=== PATIENT | female | born 1955 | race Caucasian/White ===

== ENCOUNTER → 2019-02-26 08:42 | Outpatient (CLI) | payer OTHER, SELFPAY ==
--- NOTE | 2019-02-26 | DI.MG.S_ITS ---
BILATERAL DIGITAL SCREENING MAMMOGRAM 3D/2D WITH CAD: 02/26/2019 CLINICAL: Routine screening. Family history of breast cancer. Comparison is made to exams dated: 04/18/2015 mammogram - [facility], 09/20/2013 mammogram, and 06/22/2012 mammogram - [facility]. The tissue of both breasts is heterogeneously dense. This may lower the sensitivity of mammography. Current study was also evaluated with a Computer Aided Detection (CAD) system. No significant masses, calcifications, or other findings are seen in either breast. There has been no significant interval change. IMPRESSION: NEGATIVE There is no mammographic evidence of malignancy. A 1 year screening mammogram is recommended. This exam was interpreted at Station ID: [id number]. NOTE: For mammograms, a report in lay terms will be sent to the patient. Approximately 15% of breast malignancies will not be visualized mammographically. In the management of a palpable breast mass, a negative mammogram must not discourage biopsy of a clinically suspicious lesion. Electronically Signed By: Juan dawn/lakshmi:02/28/2019 08:41:40 letter sent: Normal Exam ACR BI-RADS Category 1: Negative 3341F
== END ==
PROVIDERS: PCP Family Medicine; Visit Provider Family Medicine
DX: Z12.31 Encounter for screening mammogram for malignant neoplasm of breast (principal); Z80.3 Family history of malignant neoplasm of breast
CPT/HCPCS: 77063; 77067

== ENCOUNTER → 2021-02-21 10:27 | Outpatient (CLI) | payer OTHER, SELFPAY ==
--- NOTE | 2021-02-21 10:31 | DI.MG.S_ITS ---
BILATERAL DIGITAL SCREENING MAMMOGRAM 3D/2D WITH CAD: 02/21/2021 CLINICAL: Routine screening. Family history of breast cancer. Comparison is made to exams dated: 02/26/2019 mammogram and 04/18/2015 mammogram - [facility]. The tissue of both breasts is heterogeneously dense. This may lower the sensitivity of mammography. Current study was also evaluated with a Computer Aided Detection (CAD) system. No significant masses, calcifications, or other findings are seen in either breast. There has been no significant interval change. IMPRESSION: NEGATIVE There is no mammographic evidence of malignancy. A 1 year screening mammogram is recommended. This exam was interpreted at Station ID: [id number]. NOTE: For mammograms, a report in lay terms will be sent to the patient. Approximately 15% of breast malignancies will not be visualized mammographically. In the management of a palpable breast mass, a negative mammogram must not discourage biopsy of a clinically suspicious lesion. Electronically Signed By: Jose benites/lakshmi:02/21/2021 11:06:59 letter sent: Normal Exam ACR BI-RADS Category 1: Negative 3341F
== END ==
PROVIDERS: PCP Family Medicine; Referring Provider Family Medicine; Visit Provider Family Medicine
DX: Z12.31 Encounter for screening mammogram for malignant neoplasm of breast (principal)
CPT/HCPCS: 77063; 77067

== ENCOUNTER → 2021-09-26 08:23 | Outpatient (CLI) | payer MEDICARE, OTHER, SELFPAY ==
[2021-09-26 18:34] LABS: Appearance Urine UA CLEAR; Bilirubin Urine UA NEGATIVE (NEGATIVE); Color Urine UA YELLOW; Glucose Urine UA NEGATIVE (Negative); Ketones Urine UA NEGATIVE (NEGATIVE); Leukocyte Esterase Urine UA 1+ (NEGATIVE); Nitrite Urine UA NEGATIVE (Negative); Occult Blood Urine UA 1+ (Negative); Protein Urine UA NEGATIVE (Negative); Specific Gravity Urine UA <=1.005 (1.000-1.035); Urobilinogen Urine UA 0.2 E.U./dL (0.2)
[2021-09-26 19:10] LABS: Bacteria Urine None Seen; Culture Indicated Urine Specimen Cultured; RBC Urine 0-1/HPF (0-5/HPF); Squamous Epithelial Cell Urine None Seen (0-5/HPF); WBC Urine 0-1/HPF (0-5/HPF)
[2021-09-26 19:12] LABS: Add Manual Diff / Slide Review NO; Basophils Absolute Auto 100 /uL (0-100); Basophils Percent Auto 1.1 % (0-2); Eosinophils Absolute Auto 100 /uL (0-450); Eosinophils Percent Auto 1.6 % (2-4); Hematocrit 38.8 % (36-46); Hemoglobin 13.3 g/dL (12.0-16.0); Lymphocytes Absolute Auto 1900 /uL (1100-4500); Lymphocytes Percent Auto 27.2 % (25-40); Mean Corpuscular HGB Conc 34.3 % (30-36); Mean Corpuscular Hemoglobin 30.3 PG (26-34); Mean Corpuscular Volume 88.3 fL (80-100); Monocytes Absolute Auto 400 /uL (0-900); Monocytes Percent Auto 5.4 % (3-14); Neutrophils Absolute Auto 4600 /uL (1500-7000); Neutrophils Percent Auto 64.7 % (50-75); Platelet Count 286 X10^3/uL (150-400); Red Blood Cell Count 4.39 X10^6/uL (4.0-5.2); Red Cell Distribution Width 12.2 % (11.6-14.8); White Blood Cell Count 7.1 X10^3/uL (4.5-11.0)
[2021-09-26 19:15] LABS: Alanine Aminotransferase 15 IU/L (<35); Albumin 4.6 g/dL (3.5-5.0); Albumin Globulin Ratio 1.8 (1.0-2.8); Alkaline Phosphatase 62 U/L (38-126); Aspartate Aminotransferase 26 IU/L (14-36); BUN Creatinine Ratio 18.3 (6-22); Bilirubin Total 0.5 mg/dL (0.2-1.3); Blood Urea Nitrogen 13 mg/dL (7-17); C-Reactive Protein Quant < 0.5 mg/dL (<1.0); Calcium 10.4 mg/dL (8.4-10.2); Carbon Dioxide 32 mmol/L (22-32); Chloride 101 mmol/L (98-107); Estimated Glomerular Filt Rate > 60.0 mL/min (>60); Globulin 2.6 g/dL (1.7-4.1); Glucose 89 mg/dL (80-110); HEMOLYSIS < 15 (0-50); Potassium 4.2 mmol/L (3.4-5.1); Sodium 138 mmol/L (137-145); Total Protein 7.2 g/dL (6.3-8.2)
[2021-09-26 19:40] LABS: TSH w/ Reflex to FT4 4.26 uIU/mL (0.47-4.68)
[2021-09-26 19:45] LABS: Erythrocyte Sedimentation Rate 5 MM/HR (0-20)
[2021-09-27 14:08] LABS: Calcium 10.4 mg/dL (8.7-10.3); Parathyroid Hormone, Intact 40 pg/mL (15-65)
== END ==
PROVIDERS: PCP Family Medicine; Referring Provider Physician Assistant Medical; Visit Provider Physician Assistant Medical
DX: R10.9 Unspecified abdominal pain (principal); R53.83 Other fatigue; R19.7 Diarrhea, unspecified
CPT/HCPCS: 80053; 81001; 82310; 83970; 84443; 85025; 85651; 86140; 87086

== ENCOUNTER → 2021-09-27 09:57 | Outpatient (CLI) | payer MEDICARE, OTHER, SELFPAY ==
[2021-10-01 13:16] LABS: Fecal Immunochemical Test Negative (Negative)
== END ==
PROVIDERS: PCP Family Medicine; Visit Provider Physician Assistant Medical
DX: R10.9 Unspecified abdominal pain (principal); R53.83 Other fatigue; R19.7 Diarrhea, unspecified
CPT/HCPCS: 82274

== ENCOUNTER → 2021-10-10 13:03 | Outpatient (CLI) | payer MEDICARE, OTHER, SELFPAY ==
--- NOTE | 2021-10-10 13:05 | DI.US.S_ITS ---
PROCEDURE: US PELVIC COMPLETE INDICATIONS: PELVIC FLOOR DYSFUNCTION. POSITIVE HPV. LEFT LOWER QUAD PAIN TECHNIQUE: Real-time scanning was performed of the pelvic organs, with image documentation. Additional endovaginal scanning was necessary due to incomplete visualization of the adnexal and endometrial structures by transabdominal scanning. COMPARISON: None. FINDINGS: Uterus: Uterus is retroverted and normal in size at 6 x 4.6 x 3.1 cm. The myometrium is homogeneous. No discrete uterine fibroid is seen. The endometrium measures 1 mm combined thickness. Complex mixed solid and cystic component structure is seen within endometrium with [id number] amount of surrounding fluid and measures up to 2.1 x 1.7 x 0.7 cm in size. No internal vascularity is identified. Ovaries: The right ovary measures 2.4 x 1 x 0.9 cm. The left ovary is not visualized. The right ovary as a normal sonographic appearance. Left than 12 follicles can be seen in right ovary. No adnexal masses are seen. Other: No pathologic free abdominal or pelvic fluid. There is an ill-defined 3.7 cm heterogeneously hypoechoic area with through acoustic shadowing seen in left lower quadrant inferior to umbilicus and show areas of internal vascularity. IMPRESSION: 1. 2.1 x 1.7 x 0.7 cm mixed solid and cystic lesion seen within endometrium with small to moderate amount of surrounding endometrial fluid. No definite internal vascularity is seen. Finding may represent benign or malignant endometrial mass, suggest CCIE correlation. 2. No discrete uterine fibroid is seen. 3. No gross abnormality is seen in right ovary. Left ovary is not visualized. 4. Indeterminate ill-defined hypoechoic area within left lower quadrant as above which may represent non peristalsing bowel loop. A left lower quadrant mass cannot be entirely excluded. Consider CT of abdomen and pelvis for further evaluation of this area. Clinical correlation is also recommended. We strive to produce accurate, complete, and clear reports of imaging services. To assist us in improving patient care, this report was composed using standard report templates and voice recognition software. Therefore, it may contain abnormal punctuation, insertions and/or omissions. Occasional wrong-word or sound-alike substitutions may occur. Though we review the report and make efforts to correct it, we do recommend that the report be read carefully in proper context to recognize any text inaccuracies. Dictated by: Chad Jacinto M.D. on 10/10/2021 at 15:21 Approved by: Chad Jacinto M.D. on 10/10/2021 at 15:27
--- NOTE | 2021-10-10 13:05 | DI.US.S_ITS ---
PROCEDURE: US ABDOMEN COMPLETE INDICATIONS: DIARRHEA. HEMATURIA. ABDOMINAL PAIN. TECHNIQUE: Real-time scanning was performed of the abdominal and retroperitoneal organs, with image documentation. COMPARISON: None. FINDINGS: Liver: Liver is normal in size and homogeneous in echotexture. Gallbladder: No gallstones. Gallbladder wall measures 2.0 millimeters. Polyps versus adherent stones noted near the gallbladder neck with largest lesion measuring measuring 2 millimeters in diameter. Biliary ducts: Intrahepatic bile ducts are non-dilated. Extrahepatic bile duct caliber measures 4.9 mm. Normal is 6-7 mm or less in diameter, or 10 mm or less post-cholecystectomy. Pancreas: Visualized portions of the pancreas are sonographically normal. Spleen: Spleen is normal in size and homogeneous in echotexture. Kidneys: Kidneys are normal in size and echotexture. Right kidney measures 11.3 cm long; left kidney measures 9.5 cm long. No hydronephrosis or nephrolithiasis. Incidental note made of by right extrarenal pelvis. No solid masses. Aorta: Visualized aorta is normal in caliber at less than 3 cm. Iliacs: Proximal common iliac arteries are normal in caliber at less than 2.5 cm. IVC: Intrahepatic inferior vena cava is patent. Miscellaneous: No free abdominal fluid. IMPRESSION: 1. Small gallbladder polyps versus adherent gallstones. Largest lesion measures 2 millimeters in diameter. 2. Pancreas is sonographically normal. 3. Mild left renal atrophy. No hydronephrosis. No definite renal mass. If there is clinical concern for neoplastic process underlying cause of hematuria, CT IVP should be considered for further evaluation. Dictated by: Lachelle Rodriguez MD, PhD on 10/10/2021 at 16:20 Approved by: Lachelle Rodriguez MD, PhD on 10/10/2021 at 16:24
== END ==
PROVIDERS: PCP Physician Assistant Medical; Referring Provider Physician Assistant Medical; Visit Provider Physician Assistant Medical
DX: N85.9 Noninflammatory disorder of uterus, unspecified (principal); K82.9 Disease of gallbladder, unspecified; R87.618 Other abnormal cytological findings on specimens from cervix uteri; M62.89 Other specified disorders of muscle; R10.32 Left lower quadrant pain; R19.7 Diarrhea, unspecified; R31.9 Hematuria, unspecified
CPT/HCPCS: 76700; 76830; 76856

== ENCOUNTER → 2021-10-17 08:40 | Outpatient (CLI) | payer MEDICARE, OTHER, SELFPAY ==
--- NOTE | 2021-10-17 08:58 | DI.CT.S_ITS ---
PROCEDURE: CT ABDOMEN PELVIS WO/W CON INDICATIONS: radiology recomendation/further delineation TECHNIQUE: Optional 5 mm thick noncontrast images acquired from the diaphragm to the symphysis pubis. After the administration of intravenous contrast, 5 mm thick images acquired from the diaphragm to the symphysis pubis after a 10-minute delay. 2 mm thick coronal and sagittal reformats were then performed of the kidneys and ureters. For radiation dose reduction, the following was used: automated exposure control, adjustment of mA and/or kV according to patient size. COMPARISON: [facility], , US ABDOMEN COMPLETE, 10/10/2021, 13:46. FINDINGS: Image quality: Excellent. 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 There is mild scarring within the inferior right middle lobe and left lingula as well as the medial left lower lobe. Heart size is normal. Urinary system: Kidneys demonstrate no renal stones, hydronephrosis, or perinephric stranding. There is symmetric bilateral renal enhancement. 2 small cysts are demonstrated within the right kidney. Renal calyces appear normal in morphology when filled with contrast without suspicious filling defects or. Opacified portions of both ureters demonstrate normal caliber. The urinary bladder is partially distended. No calcified bladder stones. Other solid organs: There are 2 small oval hypodensities within the right hepatic lobe which are too small to characterize but likely represent cysts. The gallbladder appears within normal limits without calcified gallstones. Biliary system is non-dilated. Pancreas enhances normally. No peripancreatic fat stranding or fluid collections. No pancreatic duct dilatation. The spleen is normal in size. No adrenal nodules. Peritoneum and bowel: Bowel loops demonstrate normal wall thickness and caliber. The appendix is normal in appearance. There is colonic diverticulosis without acute diverticulitis. No free fluid or air. Nodes and vessels: No retroperitoneal or mesenteric adenopathy by size criteria. Aorta and inferior vena cava are normal in size. Abdominal wall: No ventral hernias. Pelvis: No pathologic free pelvic fluid. No inguinal hernias or adenopathy. Bones: No suspicious bony lesions. No vertebral body compression fractures. IMPRESSION: 1. No evidence of nephrolithiasis or suspicious filling defects in the renal collecting systems. No discrete renal mass. Dictated by: Barry Catalan M.D. on 10/17/2021 at 11:21 Approved by: Barry Catalan M.D. on 10/17/2021 at 11:34
[2021-10-17 09:45] LABS: BUN Creatinine Ratio 16.9 (6-22); Blood Urea Nitrogen 14 mg/dL (7-17); Estimated Glomerular Filt Rate > 60.0 mL/min (>60)
== END ==
PROVIDERS: PCP Physician Assistant Medical; Referring Provider Physician Assistant Medical; Visit Provider Physician Assistant Medical
DX: R31.9 Hematuria, unspecified (principal); M62.89 Other specified disorders of muscle; R10.32 Left lower quadrant pain; R87.618 Other abnormal cytological findings on specimens from cervix uteri; R53.83 Other fatigue
CPT/HCPCS: 36415; 74178; 82565; 84520

== ENCOUNTER → 2021-10-31 12:00 | Outpatient (CLI) | payer MEDICARE, OTHER, SELFPAY ==
[2021-10-31 19:15] LABS: Appearance Urine UA CLEAR; Bilirubin Urine UA NEGATIVE (NEGATIVE); Color Urine UA YELLOW; Glucose Urine UA NEGATIVE (Negative); Ketones Urine UA NEGATIVE (NEGATIVE); Leukocyte Esterase Urine UA NEGATIVE (NEGATIVE); Nitrite Urine UA NEGATIVE (Negative); Occult Blood Urine UA 1+ (Negative); Protein Urine UA NEGATIVE (Negative); Urobilinogen Urine UA 0.2 E.U./dL (0.2)
[2021-10-31 19:18] LABS: pH Urine UA 7.5 (4.5-8.0)
[2021-10-31 19:32] LABS: RBC Urine 0-1/HPF (0-5/HPF); Squamous Epithelial Cell Urine 0-1 /HPF (0-5/HPF); WBC Urine 0-1/HPF (0-5/HPF)
[2021-10-31 19:33] LABS: Bacteria Urine None Seen; Culture Indicated Urine Cult Not Indicated
[2021-11-02 09:09] LABS: Parathyroid Hormone, Intact 52 pg/mL (15-65)
== END ==
PROVIDERS: PCP Physician Assistant Medical; Visit Provider Physician Assistant Medical
DX: E83.52 Hypercalcemia (principal); R31.9 Hematuria, unspecified
CPT/HCPCS: 81001; 82310; 83970

== ENCOUNTER → 2022-01-28 10:21 | Outpatient (CLI) | payer MEDICARE, OTHER, SELFPAY ==
--- NOTE | 2022-01-28 10:22 | DI.US.S_ITS ---
PROCEDURE: US PELVIC COMPLETE INDICATIONS: FOLLOW-UP ENDOMETRIAL MASS TECHNIQUE: Real-time scanning was performed of the pelvic organs, with image documentation. Additional endovaginal scanning was necessary due to incomplete visualization of the adnexal and endometrial structures by transabdominal scanning. COMPARISON: [facility], US, US PELVIC COMPLETE, 10/10/2021, 13:28. FINDINGS: Uterus: Uterus is retroverted and normal in size at 5.5 x 3.2 x 4.8 cm. The myometrium is homogeneous. The endometrium measures 9.0 mm combined thickness. A 2.7 x 1.5 x 0.7 centimeter heterogenous mixed solid and cystic mass is seen within the endometrial canal, previously measuring 2.1 x 1.7 x 0.7 cm. This finding is most consistent with an endometrial polyp. Ovaries: The right ovary measures 2.2 x 1.0 x 1.2 cm. The left ovary measures 1.7 x 1.2 x 0.9 cm. The ovaries have a normal sonographic appearance. Less than 12 follicles can be seen in each ovary. No adnexal masses are seen. Other: No pathologic free abdominal or pelvic fluid. IMPRESSION: 2.7 x 1.5 x 0.7 centimeter heterogenous, mixed solid and cystic mass within the endometrium likely an endometrial polyp. No significant change compared to prior ultrasound on 10/10/2021. We strive to produce accurate, complete, and clear reports of imaging services. To assist us in improving patient care, this report was composed using standard report templates and voice recognition software. Therefore, it may contain abnormal punctuation, insertions and/or omissions. Occasional wrong-word or sound-alike substitutions may occur. Though we review the report and make efforts to correct it, we do recommend that the report be read carefully in proper context to recognize any text inaccuracies. Dictated by: Donnell Kellogg M.D. on 01/28/2022 at 12:39 Approved by: Donnell Kellogg M.D. on 01/28/2022 at 12:43
== END ==
PROVIDERS: PCP Physician Assistant Medical; Referring Provider Obstetrics & Gynecology; Visit Provider Obstetrics & Gynecology
DX: N94.89 Other specified conditions associated with female genital organs and menstrual cycle (principal)
CPT/HCPCS: 76856

== ENCOUNTER → 2022-03-11 15:48 | Outpatient (CLI) | payer MEDICARE, OTHER, SELFPAY ==
--- NOTE | 2022-03-11 | DI.MG.S_ITS ---
BILATERAL DIGITAL SCREENING MAMMOGRAM 3D/2D WITH CAD: 03/11/2022 CLINICAL: Routine screening. Family history of breast cancer. Comparison is made to exams dated: 02/21/2021 mammogram, 02/26/2019 mammogram, 04/18/2015 mammogram - [facility], and 09/20/2013 mammogram - [facility]. The tissue of both breasts is heterogeneously dense. This may lower the sensitivity of mammography. Current study was also evaluated with a Computer Aided Detection (CAD) system. No significant masses, calcifications, or other findings are seen in either breast. There has been no significant interval change. IMPRESSION: NEGATIVE There is no mammographic evidence of malignancy. A 1 year screening mammogram is recommended. This exam was interpreted at Station ID: [id number]. NOTE: For mammograms, a report in lay terms will be sent to the patient. Approximately 15% of breast malignancies will not be visualized mammographically. In the management of a palpable breast mass, a negative mammogram must not discourage biopsy of a clinically suspicious lesion. Electronically Signed By: Jairo cui/lakshmi:03/12/2022 08:33:56 letter sent: Normal Exam ACR BI-RADS Category 1: Negative 3341F
== END ==
PROVIDERS: PCP Physician Assistant Medical; Referring Provider Physician Assistant Medical; Visit Provider Physician Assistant Medical
DX: Z12.31 Encounter for screening mammogram for malignant neoplasm of breast (principal); Z80.3 Family history of malignant neoplasm of breast
CPT/HCPCS: 77063; 77067

== ENCOUNTER → 2022-09-30 10:08 | Outpatient (CLI) | payer MEDICARE, OTHER, SELFPAY ==
--- NOTE | 2022-09-30 10:12 | DI.US.S_ITS ---
PROCEDURE: US PELVIC COMPLETE INDICATIONS: Follow-up asymptomatic endometrial mass TECHNIQUE: Real-time scanning was performed of the pelvic organs, with image documentation. Additional endovaginal scanning was necessary due to incomplete visualization of the adnexal and endometrial structures by transabdominal scanning. COMPARISON: [facility], US, US PELVIC COMPLETE, 01/28/2022, 11:08. FINDINGS: Uterus: Uterus is retroverted and normal in size at 5.7 x 3.1 x 4.6 cm. The myometrium is homogeneous. The endometrium measures 7 mm combined thickness. Previously described 2.7 x 1.5 x 0.7 cm heterogeneously hypoechoic structure within the endometrial canal now measures 2.1 x 0.7 x 1.5 cm in size. No internal vascularity is seen. Ovaries: The right ovary measures 2.2 x 0.9 x 0.9 cm, with a calculated ovarian volume of 0.9 cc. The left ovary measures 1.8 x 0.9 x 0.9 cm, with a calculated ovarian volume of 0.8 cc. The ovaries have a normal sonographic appearance. Less than 12 follicles can be seen in each ovary. No adnexal masses are seen. Other: No pathologic free abdominal or pelvic fluid. IMPRESSION: 1. Previously described mixed solid and cystic nodule within endometrial canal is slightly smaller in size on the current study and show no internal vascularity. No endometrial fluid. Finding likely represent endometrial polyp. Interventional [employer] Consultant correlation is recommended. 2. Normal appearing bilateral ovaries. We strive to produce accurate, complete, and clear reports of imaging services. To assist us in improving patient care, this report was composed using standard report templates and voice recognition software. Therefore, it may contain abnormal punctuation, insertions and/or omissions. Occasional wrong-word or sound-alike substitutions may occur. Though we review the report and make efforts to correct it, we do recommend that the report be read carefully in proper context to recognize any text inaccuracies. Dictated by: Chad Jacinto M.D. on 09/30/2022 at 13:05 Approved by: Chad Jacinto M.D. on 09/30/2022 at 13:14
== END ==
PROVIDERS: PCP Physician Assistant Medical; Referring Provider Obstetrics & Gynecology; Visit Provider Obstetrics & Gynecology
DX: N94.89 Other specified conditions associated with female genital organs and menstrual cycle (principal)
CPT/HCPCS: 76830; 76856

== ENCOUNTER → 2023-07-30 14:21 | Outpatient (CLI) | payer MEDICARE, OTHER, SELFPAY ==
--- NOTE | 2023-07-30 14:22 | DI.US.S_ITS ---
PROCEDURE: US PELVIC COMPLETE INDICATIONS: INTERVAL FOLLOW UP ENDOMETRIAL MASS/POLYP TECHNIQUE: Real-time scanning was performed of the pelvic organs, with image documentation. Additional endovaginal scanning was necessary due to incomplete visualization of the adnexal and endometrial structures by transabdominal scanning. COMPARISON: [facility], US, US PELVIC COMPLETE, 09/30/2022, 10:29. FINDINGS: Uterus: Uterus is retroverted and normal in size at 5.4 x 2.8 x 4.4 cm. The myometrium is homogeneous. The endometrium measures 8 mm combined thickness. Solid and cystic area of heterogeneous echogenicity is seen within the endometrial canal measuring approximately 2.4 x 0.8 x 1.9 cm (previously measuring 2.1 x 0.7 x 1.5 cm). No internal vascularity is seen. Ovaries: The right ovary measures 1.8 x 1.3 x 1.6 cm, with a calculated ovarian volume of 2.0 cc. The left ovary is not visualized. Right ovary has a normal sonographic appearance. No adnexal masses are seen. Other: No pathologic free abdominal or pelvic fluid. IMPRESSION: 1. Previously seen solid and cystic mass in the endometrium is stable to mildly increased in size when compared to the ultrasound from 09/30/2022, suspicious for an endometrial polyp. No internal vascularity is demonstrated. 2. Left ovary is not visualized. No adnexal mass. Approved by: Jose Cordova M.D. on 07/30/2023 at 21:00
== END ==
PROVIDERS: PCP Physician Assistant Medical; Referring Provider Obstetrics & Gynecology; Visit Provider Obstetrics & Gynecology
DX: N94.89 Other specified conditions associated with female genital organs and menstrual cycle (principal); N85.8 Other specified noninflammatory disorders of uterus
CPT/HCPCS: 76830; 76856; 93976

== ENCOUNTER 2023-08-21 07:59 | Day surgery (SDC) | payer MEDICARE, OTHER, SELFPAY ==
[2023-08-17 08:29] VITALS: BMI 21.2
[2023-08-21] VITALS (9 sets, daily range): BP systolic 108–134; BP diastolic 75–88; PULSE 46–74; RESP 14–16; TEMP 36.1–36.8; O2SAT 97–100; BMI 21.2
--- NOTE | 2023-08-21 | PATH_ITS ---
[facility] Accession Number: [id number] No. of containers..03 Tissue . 01 Material submitted: . PART A: cervix - CERVICAL CURETTINGS PART B: endometrium - ENDOMETRIAL POLYPS PART C: endometrium - ENDOMETRIAL CURETTINGS . 01 Diagnosis: A. Endocervix, Curettage: Benign endocervical epithelium. Negative for dysplasia. . B. Endometrium, Biopsy: Mixed endocervical/endometrial polyp fragments. Negative for significant atypia and malignancy. . C. Endometrium, Curettage: Detached strips of nonproliferative endometrial epithelium. Negative for significant atypia and malignancy. [facility] 08/31/2023 1101 Local . 01 Electronically signed: . Yue Clements MD, Pathologist NPI- [id number] . 01 Gross description: . A. Received in formalin, labeled with the patient's name and , designated cervical curettings, and consists of multiple cheek soft tissue fragments admixed with mucoid material aggregating to 1.7 x 1.3 x 0.1 cm. The specimen is filtered and submitted entirely in cassette A1. B. Received in formalin, labeled with the patient's name and , designated endometrial polyps, and consists of two cheek soft tissue fragments. The first measures 2.4 x 1.0 x 0.6 cm with the presumed margin inked blue. The second fragment measures 0.5 x 0.4 x 0.1 cm. The largest fragment is serially sectioned revealing a cheek, soft cut surface. Submitted entirely in cassettes B1-B2. C. Received in formalin, labeled with the patient's name and , designated endometrial curettings, and consists of multiple cheek soft tissue fragments admixed with mucoid material aggregating to 1.0 x 0.7 x 0.1 cm. The specimen is filtered and submitted entirely in cassette C1. ([id number]) /[facility] 08/22/2023 [facility]6 Local . 01 Pathologist provided ICD-10: N84.0 . 01 CPT . 237919, [id number], 122690 Specimen Comment: A courtesy copy of this report has been sent to [facility] Pathology Performed at: 01 [facility] [address] [place] [address], [place], [place] [id number] MD Barry Eemry MD Phone: [phone]
[2023-08-21] MEDS: LACTATED RINGERS 1,000 ML 100 ML IV (08:12)
--- NOTE | 2023-08-21 08:19 | PM.PREOP ---
Pre-operative Note COVID-19 COVID-19 status: Not tested Interval Note History & Physical reviewed/Exam performed by Physician: Yes Changes to H&P: No
[2023-08-21] MEDS: SCOPOLAMINE 1 PATCH TOP (08:57)
[2023-08-21] MEDS: ACETAMINOPHEN IV 1,000 MG/100 ML VIAL 400 MG IV (10:00)
--- NOTE | 2023-08-21 10:20 | PM.GYNOP.1 ---
Operative Date/Time/Diagnoses Date of procedure: 08/21/23 Time of procedure: 09:30 Pre-op diagnosis: Endometrial mass Post-op diagnosis: same Procedure & Clinicians Procedure: Procedures Operation Date: 08/21/23 09:15 <No data on this case meets the specified criteria> Indications: Leslye is a 68 yo postmenopausal woman who has had serial ultrasounds due to endometrial mass at least since 2020. Her most recent pelvic ultrasound a couple of weeks ago in follow-up of the pelvic mass showed: FINDINGS: Uterus: Uterus is retroverted and normal in size at 5.4 x 2.8 x 4.4 cm. The myometrium is homogeneous. The endometrium measures 8 mm combined thickness. Solid and cystic area of heterogeneous echogenicity is seen within the endometrial canal measuring approximately 2.4 x 0.8 x 1.9 cm (previously measuring 2.1 x 0.7 x 1.5 cm). No internal vascularity is seen. Ovaries: The right ovary measures 1.8 x 1.3 x 1.6 cm, with a calculated ovarian volume of 2.0 cc. The left ovary is not visualized. Right ovary has a normal sonographic appearance. No adnexal masses are seen. Other: No pathologic free abdominal or pelvic fluid. IMPRESSION: 1. Previously seen solid and cystic mass in the endometrium is stable to mildly increased in size when compared to the ultrasound from 09/30/2022, suspicious for an endometrial polyp. No internal vascularity is demonstrated. 2. Left ovary is not visualized. No adnexal mass. Due to the subtle changes in the size of the endometrial mass, the patient has opted to proceed with hysteroscopy and removal of the mass along with dilation and curettage of the uterus. She presents today for her scheduled surgery. Surgeon: Sadi Liang Anesthesia Type: General Operative Notes Findings: The patient has a single polypoid mass arising from the left lateral aspect of lower uterine segment endometrium. The remainder of the endometrial cavity is unremarkable. Closure Type: not applicable Specimen(s): endometrial curettings, endometrial polyp and other (Endocervical curettings) Estimated blood loss (mL): 10 Blood products transfused: none Procedure in detail: With the patient under satisfactory general anesthesia in the modified dorsal lithotomy position, the vagina, perineum, and lower abdomen prepped and draped in the usual manner for hysteroscopy/D&C. A pre-surgical safety time-out was then taken in accordance with [facility] Main OR protocols. A bivalve speculum was placed in the vagina and the anterior lip of the cervix grasped with a single-tooth tenaculum. The tract of the endocervical canal was then identified with an os finder and the endocervical canal subsequently dilated to a number 26 Cabrera dilator. The hysteroscope was then introduced into the endometrial cavity endometrial cavity was visualized with findings as noted previously. A Marvin stone forceps was then introduced into endometrial cavity and the base of the atrial polyp grasped, and removed with gentle traction. The endometrial polyp was submitted as a separate pathologic specimen. Fractional dilation and curettage was then accomplished with endocervical and endometrial curettings obtained 2 separate specimens. Once the curettage been completed, the tenaculum was removed from the anterior lip of the cervix and no bleeding from the puncture sites was noted. Speculum was then removed from the vagina patient awakened from anesthesia. She was then transferred PACU after having tolerated procedure well. Complications: none Post-operative Condition: stable Disposition: PACU Plan for aftercare: Routine postop care with follow-up planned for 2 weeks postop.
[2023-08-21] MEDS: OXYCODONE IR 5 MG TABLET PO ×2 (10:36→11:11)
[2023-08-21] MEDS: ONDANSETRON 4 MG/2 ML INJ IV (10:36)
[2023-08-21] MEDS: HYDROMORPHONE 1 MG INJ IV ×2 (11:04→11:11)
== END 2023-08-21 11:50 | disposition home or self-care (01) ==
PROVIDERS: PCP Physician Assistant Medical; Referring Provider Obstetrics & Gynecology; Visit Provider Obstetrics & Gynecology
PROC: 0UDB8ZZ Extraction of Endometrium, Via Natural or Artificial Opening Endoscopic (ICD-10-PCS; CPT 58558; principal; 2023-08-21 09:15)
DX: R19.09 Other intra-abdominal and pelvic swelling, mass and lump (principal); N84.1 Polyp of cervix uteri
CPT/HCPCS: 58558; J0131; J1100; J1170; J2405; J2704; J3010; J3490

== ENCOUNTER → 2024-01-20 09:09 | Outpatient (CLI) | payer MEDICARE, OTHER, SELFPAY ==
[2024-01-20 21:00] LABS: Add Manual Diff / Slide Review NO; Basophils Absolute Auto 100 /uL (0-100); Basophils Percent Auto 1.1 % (0-2); Eosinophils Absolute Auto 100 /uL (0-450); Hematocrit 41.1 % (36-46); Hemoglobin 13.7 g/dL (12.0-16.0); Lymphocytes Absolute Auto 2200 /uL (1100-4500); Lymphocytes Percent Auto 42.4 % (25-40); Mean Corpuscular HGB Conc 33.4 % (30-36); Mean Corpuscular Hemoglobin 29.8 PG (26-34); Mean Corpuscular Volume 89.4 fL (80-100); Monocytes Absolute Auto 300 /uL (0-900); Neutrophils Absolute Auto 2500 /uL (1500-7000); Neutrophils Percent Auto 48.5 % (50-75); Platelet Count 291 X10^3/uL (150-400); Red Blood Cell Count 4.59 X10^6/uL (4.0-5.2); White Blood Cell Count 5.2 X10^3/uL (4.5-11.0)
[2024-01-20 21:04] LABS: Alanine Aminotransferase 15 IU/L (<35); Albumin 4.3 g/dL (3.5-5.0); Albumin Globulin Ratio 1.7 (1.0-2.8); Alkaline Phosphatase 68 U/L (38-126); Aspartate Aminotransferase 26 IU/L (14-36); BUN Creatinine Ratio 20.6 (6-22); Bilirubin Total 0.6 mg/dL (0.2-1.3); Blood Urea Nitrogen 14 mg/dL (7-17); Calcium 10.3 mg/dL (8.4-10.2); Carbon Dioxide 30 mmol/L (22-32); Chloride 104 mmol/L (98-107); Cholesterol 228 mg/dL (140-199); Estimated Glomerular Filt Rate > 60 mL/min (>60); Globulin 2.6 g/dL (1.7-4.1); Glucose 86 mg/dL (80-110); HDL Cholesterol 99 mg/dL (40-60); HEMOLYSIS < 15 (0-50); LDL Cholesterol Calculated 116 mg/dL (<100); Potassium 4.5 mmol/L (3.4-5.1); Sodium 139 mmol/L (137-145); Total Protein 6.9 g/dL (6.3-8.2); Triglycerides 64 mg/dL (35-150)
[2024-01-20 21:38] LABS: TSH w/ Reflex to FT4 1.82 uIU/mL (0.47-4.68)
[2024-01-23 08:15] LABS: Calcium 10.1 mg/dL (8.7-10.3); Parathyroid Hormone, Intact 44 pg/mL (15-65)
== END ==
PROVIDERS: PCP Physician Assistant Medical; Visit Provider Physician Assistant Medical
DX: R31.9 Hematuria, unspecified (principal); K76.89 Other specified diseases of liver; N28.1 Cyst of kidney, acquired; Z13.6 Encounter for screening for cardiovascular disorders; E83.52 Hypercalcemia; R91.1 Solitary pulmonary nodule; Z12.11 Encounter for screening for malignant neoplasm of colon; Z12.12 Encounter for screening for malignant neoplasm of rectum; Z12.39 Encounter for other screening for malignant neoplasm of breast
CPT/HCPCS: 80053; 80061; 82310; 83970; 84443; 85025

== ENCOUNTER → 2024-01-20 14:43 | Outpatient (CLI) | payer MEDICARE, OTHER, SELFPAY ==
--- NOTE | 2024-01-20 14:45 | DI.MG.S_ITS ---
BILATERAL DIGITAL SCREENING MAMMOGRAM 3D/2D WITH CAD: 01/20/2024 CLINICAL: Routine screening. Family history of breast cancer. Comparison is made to exams dated: 03/11/2022 mammogram, 02/21/2021 mammogram, and 02/26/2019 mammogram - [facility]. Both breasts are heterogeneously dense, which may obscure small masses (category c / 51-75% glandular tissue). Current study was also evaluated with a Computer Aided Detection (CAD) system. No significant masses, calcifications, or other findings are seen in either breast. There has been no significant interval change. IMPRESSION: NEGATIVE There is no mammographic evidence of malignancy. A 1 year screening mammogram is recommended. Based on the Tyrer Cuzick model (a risk assessment model) the patient's lifetime risk is 13.8% and her 10 year risk is 7.4%. According to the ACR, ACS, and NCCN guidelines, an annual breast MRI exam along with mammogram is recommended if the patient's lifetime risk is 20% or greater. This exam was interpreted at Station ID: [id number]. NOTE: For mammograms, a report in lay terms will be sent to the patient. Approximately 15% of breast malignancies will not be visualized mammographically. In the management of a palpable breast mass, a negative mammogram must not discourage biopsy of a clinically suspicious lesion. Electronically Signed By: Jairo cui/lakshmi:01/20/2024 17:24:08 letter sent: Normal Exam ACR BI-RADS Category 1: Negative 3341F
--- NOTE | 2024-01-20 14:45 | DI.RAD.S_ITS ---
Bone Density Report Name: DARNELL HODGE Age: 68 Sex: Female Ethnicity: White Date of : 1955 Indication: postmenopausal; screening for osteoporosis; Referring Provider: PEDRO OCASIO Study: Bone densitometry was performed. Exam Date: January 20, 2024 Accession number: [id number] Bone Density: Region BMD T-score Z-score Classification AP Spine(L1-L4) 1.166 1.1 3.0 Normal Femoral Neck (Left) 0.806 -0.4 1.3 Normal Total Hip (Left) 0.888 -0.4 0.9 Normal Femoral Neck (Right) 0.761 -0.8 0.9 Normal Total Hip (Right) 0.858 -0.7 0.7 Normal Total Hip Mean 0.873 -0.6 0.8 Normal World Health Organization criteria for BMD impression classify patients as: Normal (T-score at or above -1.0), Osteopenia (T-score between -1.0 and -2.5), or Osteoporosis (T-score at or below -2.5). 10-year Fracture Risk: FRAX not reported because: All T-scores for Spine Total, Hip Total, Femoral Neck at or above -1.0 Impression: The patient has normal bone mass. Discussion: BONE DENSITY IS ABOVE THE MINIMUM DESIRABLE LEVEL AT ALL SKELETAL SITES TESTED. This patient's bone mineral density is above the minimum desirable level (T-score -1.0 or better) at all sites measured. The patient should follow a healthful lifestyle (good nutrition with adequate calcium and vitamin D, and appropriate weight-bearing exercise). Follow-Up: Consider repeating this study in 5 years or sooner if there is some new clinical indication. Reported by: CHAD HUBBARD M.D. on 01/20/2024 3:14:00 PM.
== END ==
PROVIDERS: PCP Physician Assistant Medical; Referring Provider Physician Assistant Medical; Visit Provider Physician Assistant Medical
DX: Z12.31 Encounter for screening mammogram for malignant neoplasm of breast (principal); Z13.820 Encounter for screening for osteoporosis; Z80.3 Family history of malignant neoplasm of breast; R92.333 Mammographic heterogeneous density, bilateral breasts; Z78.0 Asymptomatic menopausal state; R31.9 Hematuria, unspecified; K76.89 Other specified diseases of liver; N28.1 Cyst of kidney, acquired; R91.1 Solitary pulmonary nodule; E83.52 Hypercalcemia; Z12.11 Encounter for screening for malignant neoplasm of colon; Z12.12 Encounter for screening for malignant neoplasm of rectum; Z13.6 Encounter for screening for cardiovascular disorders
CPT/HCPCS: 77063; 77067; 77080; 80053; 80061; 82310; 83970; 84443; 85025

== ENCOUNTER 2025-02-03 15:52 | Emergency (ER) | payer MEDICARE, OTHER, SELFPAY ==
[2025-02-03] VITALS (22 sets, daily range): BP systolic 123–171; BP diastolic 72–91; PULSE 53–66; RESP 8–20; TEMP 37.1; O2SAT 96–100; BMI 22.0
[2025-02-03 16:15] LABS: Add Manual Diff / Slide Review NO; Basophils Absolute Auto 100 /uL (0-100); Basophils Percent Auto 1.2 % (0-2); Eosinophils Absolute Auto 100 /uL (0-450); Eosinophils Percent Auto 2.1 % (2-4); Hematocrit 41.8 % (36-46); Hemoglobin 14.1 g/dL (12.0-16.0); Lymphocytes Absolute Auto 2700 /uL (1100-4500); Lymphocytes Percent Auto 37.9 % (25-40); Mean Corpuscular HGB Conc 33.8 % (30-36); Mean Corpuscular Hemoglobin 29.9 PG (26-34); Mean Corpuscular Volume 88.4 fL (80-100); Monocytes Absolute Auto 400 /uL (0-900); Monocytes Percent Auto 5.6 % (3-14); Neutrophils Absolute Auto 3800 /uL (1500-7000); Neutrophils Percent Auto 53.2 % (50-75); Platelet Count 286 X10^3/uL (150-400); Red Blood Cell Count 4.73 X10^6/uL (4.0-5.2); Red Cell Distribution Width 12.7 % (11.6-14.8); White Blood Cell Count 7.1 X10^3/uL (4.5-11.0)
[2025-02-03 16:20] LABS: INR 0.9 (0.9-1.3); Prothrombin Time 10.7 SECONDS (9.4-12.5)
--- NOTE | 2025-02-03 16:20 | EKG_ITS ---
[address] [address] Test Date: 2025-02-03 Pat Name: Leslye Garcia Department: Room: Gender: Female Decal Applier: HERMELINDA : 1955 Requested By: Order Number: [id number] Reading MD: Carlo Cuenca Measurements Intervals [place] Rate: 63 P: 76 GA: 168 QRS: 77 QRSD: 84 T: 51 QT: 420 QTc: 429 Interpretive Statements Normal sinus rhythm with sinus arrhythmia Electronically Signed On 02-07-2025 20:09:18 PDT by Carlo Cuenca
[2025-02-03 16:23] LABS: PTT Partial Thromboplastin Tim 31 SECONDS (25.1-36.5)
[2025-02-03 16:25] LABS: Alanine Aminotransferase 23 IU/L (<35); Albumin 4.9 g/dL (3.5-5.0); Albumin Globulin Ratio 1.9 (1.0-2.8); Alkaline Phosphatase 72 U/L (38-126); Aspartate Aminotransferase 36 IU/L (14-36); BUN Creatinine Ratio 27.9 (6-22); Bilirubin Total 0.5 mg/dL (0.2-1.3); Blood Urea Nitrogen 19 mg/dL (7-17); Calcium 10.1 mg/dL (8.4-10.2); Carbon Dioxide 21 mmol/L (22-32); Chloride 104 mmol/L (98-107); Estimated Glomerular Filt Rate > 60 mL/min (>60); Globulin 2.6 g/dL (1.7-4.1); Glucose 90 mg/dL (80-110); HEMOLYSIS 50 (0-50); Potassium 3.6 mmol/L (3.4-5.1); Sodium 139 mmol/L (137-145); Total Protein 7.5 g/dL (6.3-8.2)
[2025-02-03] MEDS: PANTOPRAZOLE 40 MG VIAL 80 MG IV (17:16)
[2025-02-03 17:25] LABS: Bacteria Urine None Seen; RBC Urine 0-1/HPF (0-5/HPF); Squamous Epithelial Cell Urine 0-1 /HPF (0-5/HPF); Urine Volume 10mL (spun); WBC Urine None Seen (0-5/HPF)
--- NOTE | 2025-02-03 20:09 | ED_ITS ---
HPI - GI Bleed General Chief complaint: GI Bleed Stated complaint: GI Bleed Time Seen by Provider: 02/03/25 18:16 History of Present Illness HPI Narrative: 69-year-old gentleman seen on [facility] today with complaints of fogginess. Apparently last night had near syncopal episode after having 2 alcoholic beverages and while playing ping pong. [place] better after she laid down. [place] was found to have hemoglobin of 9.4 which compared to 13.7 one month previously. Recommended further ER evaluation for possibility of GI bleeding. She notes that for the last number of months she is had a dry throat and her voice has been somewhat hoarse. She does not describe any fevers or chills. She is had some lower abdominal cramping for a day or so. She is had 3 regular bowel movements in the last 24 hours which is a bit more than usual but not overt diarrhea. Related Data Home Medications Medication Instructions Recorded Confirmed coenzyme Q10 75 mg capsule (Ultra 120 mg PO DAILY PRN 01/05/24 02/03/25 CoQ10) Previous Rx's Medication Instructions Recorded estradiol 0.01% (0.1 mg/gram) 1 g vaginal 3XW #42.5 grams 09/04/23 vaginal cream Allergies Allergy/AdvReac Type Severity Reaction Status Date / Time No Known Drug Allergies Allergy Verified 03/23/24 07:53 Review of Systems Review of Systems Narrative: Pertinent positive and negative findings as per HPI Patient History Medical History (Updated 02/03/25 @ 20:44 by Gabby Soto MD) Postmenopausal atrophic vaginitis Atypical nevus Encounter for general adult medical examination w/o abnormal findings Laceration of right lower leg (~06/30/18) Screening for cervical cancer Screening for colon cancer Health maintenance examination Surgical History (Updated 09/23/22 @ 15:44 by Isadora Salcedo PA-C) Anesthesia [place] teeth removed H/O basal cell carcinoma excision (~2004) Family History Brother Eye cancer Brother Germ cell cancer Social History marital status: number of children: 2 household members: spouse alcohol intake: current caffeine: Yes Type(s) of exercise: walking and independent ambulation frequency: daily alcohol intake frequency: holidays/special occasions only Exam Initial Vital Signs Initial Vital Signs: Vital Signs Pulse Rate 66 02/03/25 15:56 Blood Pressure 160/91 H 02/03/25 15:56 Pulse Oximetry 100 02/03/25 15:56 General: Healthy appearing, in no acute distress. Able to give a complete and coherent history. Well-nourished well-developed HEENT: Moist mucous membranes, normal sclera with reactive pupils, Respiratory: Lungs are clear to auscultation, no wheezing no rales no rhonchi. Full and symmetrical air movement Cardiac: Regular rate and rhythm no murmurs no bruits Abdomen: Soft, minor discomfort in the epigastrium with no rebound or guarding. Skin: Warm and dry, no rashes Neurologic: Grossly neurologically intact with no obvious asymmetries or abnormalities Extremities: No trauma, well perfused Psych: Cooperative, appropriate insight and affect Guaiac exam: Stool is brown and guaiac negative Course Orders Ordered: ED Orders 02/03/25 16:00 Complete Blood Count AUTO DIFF Stat Comprehensive Metabolic Panel Stat PTT Partial Thromboplastin Basilio Stat Prothrombin Time INR Stat Type and Screen Stat EKG-12 Lead Stat 02/03/25 16:58 Urine Culture Stat Urine Microscopic Stat Ondansetron HCl (Ondansetron 4 Mg/2 Ml Inj) 4 mg IV NOW PRN PRN Reason: Nausea And Vomiting Ondansetron HCl (Ondansetron 4 Mg Odt) 4 mg SL NOW PRN PRN Reason: Nausea And Vomiting Discontinued Medications Pantoprazole Sodium (Pantoprazole 40 Mg Vial) 80 mg IV NOW ONE Stop: 02/03/25 16:00 Last Admin: 02/03/25 17:16 Dose: 80 mg Documented By: SHEELA Vital Signs Vital signs: Vital Signs - 8 hr 02/03/25 15:56 02/03/25 15:56 02/03/25 15:57 Temperature 98.7 F Pulse Rate 66 66 Respiratory Rate 16 Blood Pressure 160/91 H 160/91 H Pulse Oximetry 100 100 Oxygen Delivery Method Room Air 02/03/25 16:00 02/03/25 16:00 02/03/25 16:15 Temperature Pulse Rate 64 59 L Respiratory Rate 18 20 Blood Pressure 151/78 H Pulse Oximetry 100 100 Oxygen Delivery Method 02/03/25 16:15 02/03/25 16:30 02/03/25 16:30 Temperature Pulse Rate 59 L Respiratory Rate 8 L Blood Pressure 134/79 127/77 Pulse Oximetry 100 Oxygen Delivery Method 02/03/25 16:55 02/03/25 16:55 02/03/25 17:00 Temperature Pulse Rate 62 62 Respiratory Rate 10 L 13 Blood Pressure 144/81 H Pulse Oximetry 99 100 Oxygen Delivery Method 02/03/25 17:00 02/03/25 17:15 02/03/25 17:15 Temperature Pulse Rate 59 L Respiratory Rate 12 Blood Pressure 134/76 124/72 Pulse Oximetry 98 Oxygen Delivery Method 02/03/25 17:30 02/03/25 17:30 02/03/25 17:45 Temperature Pulse Rate 58 L 59 L Respiratory Rate 11 L 9 L Blood Pressure 123/72 Pulse Oximetry 98 98 Oxygen Delivery Method 02/03/25 17:45 02/03/25 18:00 02/03/25 18:00 Temperature Pulse Rate 63 Respiratory Rate 17 Blood Pressure 123/78 140/85 Pulse Oximetry 99 Oxygen Delivery Method 02/03/25 18:15 02/03/25 18:15 02/03/25 18:30 Temperature Pulse Rate 60 55 L Respiratory Rate 20 18 Blood Pressure 147/77 H Pulse Oximetry 99 100 Oxygen Delivery Method 02/03/25 18:30 02/03/25 18:44 02/03/25 18:45 Temperature Pulse Rate 56 L Respiratory Rate 17 Blood Pressure 135/80 142/82 H Pulse Oximetry 100 Oxygen Delivery Method 02/03/25 18:45 02/03/25 19:00 02/03/25 19:00 Temperature Pulse Rate 56 L Respiratory Rate 11 L Blood Pressure 140/86 142/85 H Pulse Oximetry 99 Oxygen Delivery Method 02/03/25 19:15 02/03/25 19:15 02/03/25 19:30 Temperature Pulse Rate 59 L 55 L Respiratory Rate 14 17 Blood Pressure 125/78 Pulse Oximetry 97 98 Oxygen Delivery Method 02/03/25 19:30 02/03/25 19:45 02/03/25 19:45 Temperature Pulse Rate 56 L Respiratory Rate 15 Blood Pressure 124/79 135/84 Pulse Oximetry 98 Oxygen Delivery Method 02/03/25 20:00 02/03/25 20:00 02/03/25 20:15 Temperature Pulse Rate 53 L 60 Respiratory Rate 11 L 13 Blood Pressure 125/75 Pulse Oximetry 96 99 Oxygen Delivery Method 02/03/25 20:15 02/03/25 20:30 Temperature Pulse Rate 60 Respiratory Rate 17 Blood Pressure 171/81 H Pulse Oximetry 99 Oxygen Delivery Method MDM - GI Bleed Lab Data 02/03/25 16:00 02/03/25 16:00 Labs: Lab Results 02/03/25 02/03/25 Range/Units 16:00 16:58 WBC 7.1 (4.5-11.0) X10^3/uL RBC 4.73 (4.0-5.2) X10^6/uL Hgb 14.1 (12.0-16.0) g/dL Hct 41.8 (36-46) % MCV 88.4 (80-100) fL MCH 29.9 (26-34) PG MCHC 33.8 (30-36) % RDW 12.7 (11.6-14.8) % Plt Count 286 (150-400) X10^3/uL Neut % (Auto) 53.2 (50-75) % Lymph % (Auto) 37.9 (25-40) % [place] % (Auto) 5.6 (3-14) % Eos % (Auto) 2.1 (2-4) % Baso % (Auto) 1.2 (0-2) % Neut # (Auto) 3800 (6334-2710) /uL Lymph # (Auto) 2700 (2460-6453) /uL [place] # (Auto) 400 (0-900) /uL Eos # (Auto) 100 (0-450) /uL Baso # (Auto) 100 (0-100) /uL PT 10.7 (9.4-12.5) SECONDS INR 0.9 (0.9-1.3) APTT 31 (25.1-36.5) SECONDS Sodium 139 (137-145) mmol/L Potassium 3.6 (3.4-5.1) mmol/L Chloride 104 (98-107) mmol/L Carbon Dioxide 21 L (22-32) mmol/L BUN 19 H (7-17) mg/dL Creatinine 0.68 (0.52-1.04) mg/dL Estimated GFR > 60 (>60) mL/min BUN/Creatinine Ratio 27.9 H (6-22) Glucose 90 (80-110) mg/dL Calcium 10.1 (8.4-10.2) mg/dL Total Bilirubin 0.5 (0.2-1.3) mg/dL AST 36 (14-36) IU/L ALT 23 (<35) IU/L Alkaline Phosphatase 72 (38-126) U/L Total Protein 7.5 (6.3-8.2) g/dL Albumin 4.9 (3.5-5.0) g/dL Globulin 2.6 (1.7-4.1) g/dL Albumin/Globulin Ratio 1.9 (1.0-2.8) Urine RBC 0-1/hpf (0-5/HPF) Urine WBC None seen (0-5/HPF) Ur Squamous Epith Cells 0-1 /hpf (0-5/HPF) Urine Bacteria None seen (None) Vol Urine Centrifuged 10ml (spun) Blood Type O Positive Antibody Screen Negative Urine Dip Bedside Urine Glucose Negative Bedside Urine Bilirubin - Negative Bedside Urine Ketone +/- 5 Urine Specific [place] 1.010 Bedside Urine Occult Blood + Bedside Urine pH 6.5 Bedside Urine Protein - Negative Bedside Urine Urobilinogen - Negative Bedside Urine Nitrite - Negative Bedside Urine Leukocytes - Negative Esterase MDM Narrative Medical decision making narrative: 69-year-old woman otherwise healthy had a near syncopal episode last night at an event where she had been standing, enjoying herself and had 2 glasses of wine. This morning still felt a bit foggy is back to her baseline today. Was seen by her primary care physician with a hemoglobin done in the office showing a decrease from January 19 at 3.7 down to 9.4. Concern was for GI bleeding with acute blood loss as a cause of her syncopal episode last night of the fogginess this morning and she was transported to [facility] for further evaluation. Possibilities include viral syndrome, upper GI bleeding lower GI bleeding, constipation, acute coronary syndrome. On evaluation in the emergency department her H&H is 14.1 and 41.8. I suspect this is seem single hemoglobin done in the office was spuriously low. She was guaiac negative and has not essentially benign exam. Findings reviewed with the patient. At this point there was no indication for additional imaging, further workup or hospitalization. Reassurance is given. She did have questions regarding some chronic symptoms including dry throat and voice change. Referred her back to her primary care physician. She is safely discharged Discharge Plan Departure Patient Disposition: Home Clinical Impression: Abdominal pain Qualifiers: Abdominal location: upper abdomen, unspecified Qualified Code(s): R10.10 - Upper abdominal pain, unspecified Instructions: DI for Orthostatic Hypotension Activity Restrictions/Additional Instructions: Thank you for coming in today Based on the near syncopal episode last night and hemoglobin level in the clinic this morning significantly lower than it was comparison January 19 there was a very real concern for GI bleeding with the acute anemia. Fortunately, when checking full CBC, it turns out that your hemoglobin is actually a bit higher than it was on January 19. I suspect that the hemoglobin done in the clinic today was inappropriately low. Your exam shows some minor tenderness over your stomach but there is no blood in your stool. I do not have an explanation for why you had the episode last night however, in light of 2 glasses of wine and feeling better when she laid down it likely was a vasovagal reaction, the wind dilated your blood vessels, your blood pressure dropped, you felt faint, by the time you were down on the floor you are again getting blood flow to your brain and everything felt better. Your workup today was quite reassuring. There was no sign of anemia, no evidence of infection, kidney function and liver function are reassuring. Your blood type is O-positive Regarding the dry throat and slight voice change, possibilities do include allergies, postnasal drip, reflux. I would discuss this with your regular doctor if it continues to be an issue I do believe discharge home today is safe. If you have new symptoms or further concerns please feel free to return to the ER and I am happy to re-evaluate Prescriptions: No Action estradiol 0.01 % (0.1 mg/gram) cream 1 g vaginal 3XW Qty: 42.5 12RF Rx Instructions: Apply 1 g PV hs x7 days, then PV hs 3 nights weekly Ultra CoQ10 75 mg capsule 120 mg PO DAILY PRN Referrals: Isadora Salcedo PA-C [Primary Care Provider] - Stand Alone Forms: Patient Portal/API/Survey
== END 2025-02-03 20:55 | disposition home or self-care (01) ==
PROVIDERS: Emergency Medicine; Emergency Provider Emergency Medicine; PCP Physician Assistant Medical
DX: R10.10 Upper abdominal pain, unspecified (principal); R55 Syncope and collapse
CPT/HCPCS: 80053; 81003; 81015; 85025; 85610; 85730; 86850; 86900; 86901; 87086; 93005; 96374; 99284; J2470

== ENCOUNTER → 2025-03-01 11:20 | Outpatient (CLI) | payer MEDICARE, OTHER, SELFPAY ==
[2025-03-01 19:47] LABS: Hemoglobin A1C% w Est Avg Glu 5.1 % (4.0-6.0)
== END ==
PROVIDERS: PCP Physician Assistant Medical; Visit Provider Family Medicine
DX: K11.7 Disturbances of salivary secretion (principal); E16.2 Hypoglycemia, unspecified; H04.123 Dry eye syndrome of bilateral lacrimal glands
CPT/HCPCS: 83036; 86038

== ENCOUNTER → 2025-09-06 09:17 | Outpatient (CLI) | payer MEDICARE, OTHER, SELFPAY ==
[2025-09-06 18:51] LABS: Add Manual Diff / Slide Review NO; Hematocrit 38.1 % (36-46); Hemoglobin 12.7 g/dL (12.0-16.0); Lymphocytes Absolute Auto 1300 /uL (1100-4500); Mean Corpuscular HGB Conc 33.4 % (30-36); Mean Corpuscular Hemoglobin 29.4 PG (26-34); Mean Corpuscular Volume 87.9 fL (80-100); Platelet Count 273 X10^3/uL (150-400)
[2025-09-06 19:03] LABS: Blood Urea Nitrogen 11 mg/dL (7-17); Calcium 9.5 mg/dL (8.4-10.2); Carbon Dioxide 28 mmol/L (22-32); Chloride 103 mmol/L (98-107); Cholesterol 203 mg/dL (140-199); Estimated Glomerular Filt Rate > 60 mL/min (>60); Glucose 80 mg/dL (70-99); HDL Cholesterol 83 mg/dL (40-60); HEMOLYSIS < 15 (0-50); Potassium 4.2 mmol/L (3.4-5.1); Sodium 139 mmol/L (137-145); Triglycerides 70 mg/dL (35-150)
== END ==
PROVIDERS: PCP Physician Assistant Medical; Visit Provider Physician Assistant Medical
DX: Z13.6 Encounter for screening for cardiovascular disorders (principal); E83.52 Hypercalcemia; E16.2 Hypoglycemia, unspecified; M81.0 Age-related osteoporosis without current pathological fracture
CPT/HCPCS: 80048; 80061; 85025

== ENCOUNTER → 2025-10-25 10:26 | Outpatient (CLI) | payer MEDICARE, OTHER, SELFPAY ==
--- NOTE | 2025-10-25 10:29 | DI.MG.S_ITS ---
MM screening mammo BI: 10/25/2025. BI-RADS: 1 CLINICAL: 70-year old female for bilateral screening mammogram. Tyrer-Cuzick lifetime risk of 6.2%. No personal or first-degree family history of breast cancer. Current reported family history of breast cancer: paternal aunt. PRIOR EXAMS 01/20/2024, 03/11/2022, 02/21/2021, 02/26/2019. MAMMOGRAPHY TECHNIQUE: 2D and 3D (tomosynthesis) digital mammographic views obtained, with additional images as needed for full coverage. Current study was also evaluated with a Computer Aided Detection (CAD) system. DENSITY C. The breasts are heterogeneously dense, which may obscure small masses. MAMMOGRAPHY FINDINGS Bilateral: No suspicious mass, asymmetry, microcalcification, or other abnormality seen. IMPRESSION: * No evidence of malignancy. RECOMMENDATIONS Bilateral * Annual screening mammography. OVERALL ASSESSMENT CATEGORY BI-RADS-1: Negative. The [employer] recommends annual screening mammography beginning at age 40 for women with average risk of breast cancer. ELECTRONICALLY SIGNED: Sera Avery M.D. on 10/25/2025 at 05:24:39 PM PT Interpreting Station ID: [id number]
== END ==
LOC: MAMMO 10:28
PROVIDERS: PCP Family Medicine; Referring Provider Physician Assistant Medical; Visit Provider Physician Assistant Medical
DX: Z12.31 Encounter for screening mammogram for malignant neoplasm of breast (principal); R92.333 Mammographic heterogeneous density, bilateral breasts; Z80.3 Family history of malignant neoplasm of breast
CPT/HCPCS: 77063; 77067